=== PATIENT | female | born 1940 | race Caucasian/White ===

== ENCOUNTER → 2020-04-20 10:00 | Outpatient (BNVA) | payer MEDICARE, OTHER, SELFPAY | PROVIDERS: Family Provider Internal Medicine; PCP Internal Medicine; Visit Provider Internal Medicine | DX: E11.9 Type 2 diabetes mellitus without complications (principal); R63.4 Abnormal weight loss; R07.9 Chest pain, unspecified; K86.3 Pseudocyst of pancreas | CPT/HCPCS: 80053; 83690; 85025 ==

== ENCOUNTER 2020-04-28 06:59 | Outpatient (CLI) | payer MEDICARE, OTHER, SELFPAY ==
--- NOTE | 2020-04-28 07:22 | NMCV_ITS ---
NM willie perf SPECT r/s* [id number] Roya Esposito Age: 79 Gender: F : 1940 Exam Date: 04/28/2020 08:00 Ordering Phys: Duran Juárez MD Technologist: LORY Solano Exam Location: [facility] Indications: CHEST PAIN IN ADULT STRESS TEST [facility] IMAGE PROTOCOL Rest/Stress 1 Lexiscan Day Radiopharmaceutical Dose (mCi) Administration Site Administered by Rest: Tc-99m 11.0 IV LORY Solano Sestamibi Stress:Tc-99m 32.9 IV LORY Pineda Sestamibi Rest: 28-Apr-2020 60 Discovery 630 Stress: 28-Apr-2020 30 Discovery 630 0.4mg Lexiscan. Images obtained in supine and prone position. SPECT RESULTS Technical Quality: Excellent Raw Data Analysis: Normal Image Corrections: No attenuation or motion correction applied Summed Stress Score: 0 Summed Rest Score: 6 Summed Difference Score: 0 PERFUSION FINDINGS Fairly uniform myocardial tracer uptake with no significant perfusion normalities FUNCTIONAL RESULTS (calculated via Gated SPECT) Stress Image LV EF (%): 91 Stress EDV (mL):35 TID: 0.67 Stress ESV (mL):3 FUNCTIONAL FINDINGS: Segmental wall motion analysis revealing no gross wall motion normalities #1. Unremarkable myocardial perfusion imaging. IMPRESSIONS 1. Unremarkable myocardial perfusion imaging 2. Normal LV ejection fraction of 91%. 3. LV wall motion analysis revealing no gross wall motion normalities. 4. Normal LV volume. No significant coronary ischemia, based on the above findings Dr Carmela Chen MD FACC (Electronically Signed) Final Date: 28 April 2020 14:20 S
[2020-04-28 07:25] VITALS: BMI 27.2
[2020-04-28 08:50] VITALS: BP 144/50; PULSE 88
[2020-04-28] MEDS: regadenoson 0.4 Mg/5 ml Syringe IVP (08:50)
--- NOTE | 2020-04-28 09:30 | ECG_ITS ---
[facility] Test Date: 2020-04-28 Pat Name: Roya Esposito Department: Room: Gender: Female Supervisor Uranium Processing: Viky Zuluaga : 1940 Requested By: Duran Juárez Order Number: [id number] Wade MD: Keyla Rojas M.D. Interpretive Statements NAME OF STUDY: LEXISCAN SESTAMIBI STRESS TEST INDICATION: Chest Pain PROCEDURE: At the baseline, the blood pressure was 119/49 mmHg, oxygen saturation 97% with a heart rate of 52 bpm. The electrocardiogram showed sinus bradycardia, normal axis with possible old anteroseptal infarct. The Lexiscan was infused over a period of 20 seconds. A total of 0.4 milligrams of Lexiscan was infused. The stress phase was continued for a total of 5 minutes. Heart rate at the end of the stress phase was 81 bpm, oxygen saturation 97% with a blood pressure of 139/48 mmHg. The EKG at the peak infusion revealed sinus rhythm with no significant ST-T wave changes. The study was terminated due to protocol completion. Sestamibi was injected 20 seconds after the Lexiscan infusion. Blood pressure at the end of the recovery phase was 148/56 mmHg, oxygen saturation 98% with a heart rate of 77 beats per minute. CONCLUSION: 1. No significant EKG changes with the LexiScan infusion. 2. No LexiScan induced chest pain or cardiac arrhythmia. 3. Normal blood pressure and heart rate response. 4. Sestamibi/sestamibi perfusion scan pending; see separate report. Electronically Signed On 04-29-2020 14:53:21 CDT by Keyla Rojas M.D. [email or web address]
== END 2020-04-28 07:00 | disposition home or self-care (01) ==
LOC: CDL 06:59
PROVIDERS: PCP Internal Medicine; Visit Provider Internal Medicine
DX: R07.9 Chest pain, unspecified (principal)
CPT/HCPCS: 78452; 93017; A9500; J2785

== ENCOUNTER 2020-05-02 13:08 | Outpatient (CLI) | payer MEDICARE, OTHER, SELFPAY ==
[2020-05-02] MEDS: iohexol 300 mg/mL 50 mL Btl PO (13:39)
--- NOTE | 2020-05-02 14:30 | CT_ITS ---
WS: [id number] CT ABDOMEN PELVIS TECHNIQUE: Contrast-enhanced CT of the abdomen and pelvis with coronal and sagittal reformatted image s. CLINICAL INFORMATION: history of pancreatitis COMPARISON: CT February 28, 2011, 3 , . DLP: 1110.[address] scans at [facility] use at least one of these dose optimization techniques: automat ed exposure control; mA and/or kV adjustment per patient size (includes targeted exams where dose is matched to clinical indication); or iterative reconstruction. FINDINGS: Mild diffuse fatty infiltration of the liver. Normal portal vein and splenic vein. Cholecystectomy cl ips. Splenic granulomas. Normal GE junction. Lung bases are well aerated. Calcified granuloma left lo wer lobe. Normal portal vein and splenic vein. Adrenal glands are normal. No hydronephrosis in either kidney. Prior cholecystectomy. Pancreatic resection with a small amount of residual pancreatic tissue at the pancreatic head/uncinate. Normal caliber abdominal aorta. Aortic calcification. Normal appendix. No adenopathy in the abdomen o r pelvis. CT/CT abdomen pelvis w con* [id number] IMPRESSION: 1. Cholecystectomy. 2. Small amount of residual pancreatic tissue involving the pancreatic head an d uncinate process. 3. No pancreatic mass or pseudocyst. 4. Mild diffuse fatty infiltration of the liver. 5. Normal caliber abdominal aorta. 6. No adenopathy in the abdomen or pelvis. 7. No other significant changes.
[2020-05-02] MEDS: iohexol 300 mg/mL 100 mL Btl IV (14:44)
== END 2020-05-02 13:09 | disposition home or self-care (01) ==
PROVIDERS: Family Provider Internal Medicine; PCP Internal Medicine; Visit Provider Internal Medicine
DX: K85.90 Acute pancreatitis without necrosis or infection, unspecified (principal); R63.4 Abnormal weight loss; K76.0 Fatty (change of) liver, not elsewhere classified
CPT/HCPCS: 74177; Q9967

== ENCOUNTER 2020-08-09 10:26 | Outpatient (CLI) | payer MEDICARE, OTHER, SELFPAY ==
--- NOTE | 2020-08-09 10:34 | XR_ITS ---
WS: [id number] XR hip BI 3-4V wo/w pel [id number] REASON FOR EXAM: M70.61 - Trochanteric bursitis, right hip FINDINGS: There is symmetric osteoarthropathy of both hip joints characterized by mild to moderate narrowing of the joint space with subchondral sclerosis in the subarticular acetabulum and marginal spurring of t he acetabulum. No loose bodies. No soft tissue abnormality. Obturator ring is intact bilaterally. XR/XR hip BI 3-4V wo/w pel [id number] IMPRESSION: Symmetric bilateral osteoarthropathy of the hips as above.
--- NOTE | 2020-08-09 10:34 | XR_ITS ---
WS: [id number] Bilateral standing knees, AP and lateral, 08/09/2020 Clinical Data: M70.61 - Trochanteric bursitis, right hip Comparison: Bilateral AP knees. Findings: There is narrowing of the lateral joint compartments and the medial joint compartments of both knees. There is spurring of the posterior right patella and also an anterior superior spur. There are no fra ctures or dislocations. Soft tissues are normal. There is spurring of the posterior left patella with a anterior superior spur. There are no fractures or dislocations. 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
== END 2020-08-09 10:27 | disposition home or self-care (01) ==
LOC: RAD 10:31
PROVIDERS: PCP Internal Medicine; Visit Provider Internal Medicine
DX: M70.61 Trochanteric bursitis, right hip (principal); M17.0 Bilateral primary osteoarthritis of knee
CPT/HCPCS: 73522; 73565

== ENCOUNTER → 2021-02-07 10:00 | Outpatient (BNVA) | payer MEDICARE, OTHER, SELFPAY | PROVIDERS: PCP Internal Medicine; Visit Provider Internal Medicine | DX: E11.9 Type 2 diabetes mellitus without complications (principal); M19.90 Unspecified osteoarthritis, unspecified site | CPT/HCPCS: 80053; 83036; 84443; 85025 ==

== ENCOUNTER → 2021-09-25 00:01 | Outpatient (BNVA) | payer MEDICARE, OTHER, SELFPAY | PROVIDERS: PCP Internal Medicine; Visit Provider Nurse Practitioner Family | DX: J06.9 Acute upper respiratory infection, unspecified (principal); Z20.822 Contact with and (suspected) exposure to COVID-19 | CPT/HCPCS: 87635 ==

== ENCOUNTER 2021-09-28 08:17 | Outpatient (CLI) | payer MEDICARE, OTHER, SELFPAY ==
[2021-09-28 08:22] VITALS: BP 142/66; PULSE 78; RESP 20; TEMP 36.6; O2SAT 97
[2021-09-28 09:20] VITALS: BMI 27.4
[2021-09-28 09:45] VITALS: BP 156/71; PULSE 62; RESP 18; TEMP 36.6; O2SAT 99
[2021-09-28 10:45] VITALS: BP 159/68; PULSE 67; RESP 18; TEMP 36.6; O2SAT 99
[2021-09-28 10:46] VITALS: BP 159/68; PULSE 67; RESP 18; TEMP 36.6; O2SAT 99
== END 2021-09-28 10:46 | disposition home or self-care (01) ==
PROVIDERS: PCP Internal Medicine; Visit Provider Nurse Practitioner Family
DX: U07.1 COVID-19 (principal)
CPT/HCPCS: 96365

== ENCOUNTER → 2022-08-30 12:58 | Outpatient (BNVA) | payer MEDICARE, OTHER, SELFPAY | PROVIDERS: PCP Internal Medicine; Visit Provider Nurse Practitioner Family | DX: I96 Gangrene, not elsewhere classified (principal); L98.492 Non-pressure chronic ulcer of skin of other sites with fat layer exposed | CPT/HCPCS: 11042; 99213 ==

== ENCOUNTER → 2022-09-06 13:55 | Outpatient (BNVA) | payer MEDICARE, OTHER, SELFPAY | PROVIDERS: PCP Internal Medicine; Visit Provider Nurse Practitioner Family | DX: S61.512D Laceration without foreign body of left wrist, subsequent encounter (principal); X58.XXXD Exposure to other specified factors, subsequent encounter | CPT/HCPCS: 99212; A6212 ==

== ENCOUNTER 2023-06-03 15:33 | Emergency (ER) | payer MEDICARE, OTHER, SELFPAY ==
[2023-06-03 15:37] VITALS: BP 178/83; PULSE 80; RESP 16; TEMP 36.6; O2SAT 99; BMI 26.6
[2023-06-03 16:35] LABS: SARS Covid-2 Antigen negative (Negative)
[2023-06-03] MEDS: tetracaine 0.5% Op Soln 4 mL Btl 1 DROP EYE-LEFT (16:38)
--- NOTE | 2023-06-03 16:40 | CTR_ITS ---
PROCEDURE INFORMATION: Exam: CTA Head With Contrast, Arteriography Exam date and time: 06/03/2023 5:50 PM Age: 82 years old Clinical indication: Visual disturbance; Other visual defect; Additional info: L medial visual field defect in L eye, potential CVA TECHNIQUE: Imaging protocol: Computed tomographic angiography of the head with contrast. Exam focused on the arteries. 3D rendering (Not supervised by radiologist): MIP and/or 3D reconstructed images were created by the technologist. Radiation optimization: All CT scans at this facility use at least one of these dose optimization techniques: automated exposure control; mA and/or kV adjustment per patient size (includes targeted exams where dose is matched to clinical indication); or iterative reconstruction. Contrast material: OMNI 350; Contrast volume: 100 ml; Contrast route: INTRAVENOUS (IV); REPORTING DATA: Count of CT and Cardiac NM exams in prior 12 months: This patient has received 0 known CTs and 0 known cardiac nuclear medicine studies in the 12 months prior to the current study. COMPARISON: CT head wo con* [id number] 06/03/2023 4:55 PM RADIATION DOSE METRICS: Total DLP (mGy-cm): 399.74 FINDINGS: ANTERIOR CIRCULATION: Right internal carotid artery: There is some atherosclerotic calcification of the right cavernous carotid artery without stenosis. Right middle cerebral artery: No occlusion or significant stenosis. No aneurysm. Right anterior cerebral artery: No occlusion or significant stenosis. No aneurysm. Left internal carotid artery: There is some atherosclerotic calcification of the left cavernous carotid artery without stenosis. Left middle cerebral artery: No occlusion or significant stenosis. No aneurysm. Left anterior cerebral artery: No occlusion or significant stenosis. No aneurysm. POSTERIOR CIRCULATION: Right vertebral artery: No occlusion or significant stenosis. No aneurysm. Left vertebral artery: No occlusion or significant stenosis. No aneurysm. Basilar artery: There is short segment of focal narrowing of the mid basilar artery with stenosis in the 20-40% range. Right posterior cerebral artery: No occlusion or significant stenosis. No aneurysm. Left posterior cerebral artery: No occlusion or significant stenosis. No aneurysm. Brain: No definite mass, mass effect, or midline shift. Cerebral ventricles: No ventriculomegaly. Bones/joints: Unremarkable. No acute fracture. Soft tissues: Unremarkable. PROCEDURE INFORMATION: Exam: CTA Neck With Contrast Exam date and time: 06/03/2023 5:50 PM Age: 82 years old Clinical indication: Visual disturbance; Other visual defect; Additional info: L medial visual field defect in L eye, potential CVA TECHNIQUE: Imaging protocol: Computed tomographic angiography of the neck with contrast. 3D rendering (Not supervised by radiologist): MIP and/or 3D reconstructed images were created by the technologist. Radiation optimization: All CT scans at this facility use at least one of these dose optimization techniques: automated exposure control; mA and/or kV adjustment per patient size (includes targeted exams where dose is matched to clinical indication); or iterative reconstruction. Contrast material: OMNI 350; Contrast volume: 100 ml; Contrast route: INTRAVENOUS (IV); REPORTING DATA: Count of CT and Cardiac NM exams in prior 12 months: This patient has received 0 known CTs and 0 known cardiac nuclear medicine studies in the 12 months prior to the current study. COMPARISON: CT head wo con* [id number] 06/03/2023 4:55 PM RADIATION DOSE METRICS: Total DLP (mGy-cm): 399.74 FINDINGS: Right common carotid artery: No stenosis. No dissection or occlusion. Right internal carotid artery: No stenosis of the extracranial segment. No dissection or occlusion. Right external carotid artery: No occlusion or stenosis of the origin. Left common carotid artery: No stenosis. No dissection or occlusion. Left internal carotid artery: No stenosis of the extracranial segment. No dissection or occlusion. Left external carotid artery: No occlusion or stenosis of the origin. Right vertebral artery: No stenosis. No dissection or occlusion. Left vertebral artery: No stenosis. No dissection or occlusion. Thyroid: There are 2 hypodense nodules in the right lobe of the thyroid, 1 measuring 8 x 10 mm in the other 11 x 12 mm. No follow-up is recommended. Soft tissues: Normal. No significant soft tissue swelling. Bones/joints: No acute fracture. CT/CT angio headneck* [id number] IMPRESSION: Mild focal stenosis mid basilar artery. There is no intracranial large vessel occlusion or aneurysm identified. IMPRESSION: No evidence of significant stenosis in the carotid or vertebral arteries on either side of the neck. COMMENTS: Consistent with the [employer]'s Incidental Findings Committee white paper (J Am Mayela Radiol 2015): In patients aged 35 years and older with an incidental thyroid nodule equal to or greater than 1.[address], MRI or extrathyroidal US, further evaluation with dedicated thyroid US is recommended for patients with normal life expectancy and without comorbidities. For smaller nodules without suspicious features, no further evaluation or follow up is recommended. REFERENCES: NASCET CRITERIA. The degree of stenosis in the cervical segment of the internal carotid artery is based on NASCET criteria. Normal is no stenosis. Mild is less than 50% stenosis. Moderate is 50-69% stenosis. Severe is 70% to 99% stenosis. Total occlusion is no detectable patent lumen.
--- NOTE | 2023-06-03 16:42 | W.ED.EYEPROB ---
HPI - Eye Problem General: Chief complaint: Eye Problems Stated complaint: left eye problems, headaches Time Seen by Provider: 06/03/23 15:48 Source: patient and family Mode of arrival: ambulatory Limitations: no limitations History of Present Illness: See nursing assessment. Patient reports 1 week ago she started having visual field problems in the left eye. She states the left medial visual field in the left eye became black with the lateral aspect of the visual field in the left eye became blurred. She states she is noticed some floaters in the vision in the left eye last couple days. She states she did not want to seek medical attention then because her was sick with gallbladder issues and required surgery. She is here today because her family advised her to come the hospital for evaluation. She states when she closes her right eye if she becomes unsteady and off balance but denies any vertigo type sensation. She states when she has her right eye open she is not off balance. She states she had mild headache over her right methodist and forehead at the onset of visual field problems 1 week ago. She denies any headache now. She states the vision is unchanged from 1 week ago. She denies any deficits from her neck down. She denies any facial droop. She denies any other neurological changes. She does have a history of insulin-dependent diabetes mellitus and takes Lantus 20 units daily. She also has a history of intermittent bladder incontinence and takes a bladder medication for that. She is also on lisinopril and meloxicam. She denies being on any blood thinners. She denies any allergies to medications. She states the vision in her right eye is normal. Associated symptoms: Reports headache(s) (Right frontal and temporal headache has resolved from last week.); Denies fever(s), nausea, neck pain or vomiting Review of Systems Const: Denies: fever(s) or chills Eyes: Reports: change in vision, blurry vision, blind spots and floaters; Denies: photophobia, eye discomfort, eye discharge, eye redness, yellow eyes, dry eyes, increased production of tears or seeing flashes ENMT: Denies: throat pain Card: Denies: chest pain or palpitations Resp: Denies: dyspnea or wheezing GI: Denies: abdominal pain, nausea or vomiting : Denies: flank pain Musc: Denies: neck pain or back pain Skin/Breast: Denies: rash or pruritus Neuro: Reports: headache(s) (Right frontal and temporal headache has resolved from last week.); Denies: numbness in extremities, behavioral changes or Slurred speech present Psych: Denies: anxiety Willie/Lymph: Denies: enlarged lymph nodes PFSH ED PFSH: Medical History Diabetes Essential (primary) hypertension Family History Father Diabetes Other Heart disease Social History Smoking and tobacco status: never smoked Alcohol intake: never Marital status: service: No Current gender identity: Female Physical Exam Const: COMMON NORMALS: no acute distress, patient oriented x3, no limitations and well nourished GENERAL APPEARANCE: cooperative HENMT: COMMON NORMALS: normocephalic and atraumatic HEAD & SCALP: normocephalic and atraumatic FACE & SINUS: normal facial exam Eye: COMMON NORMALS: EOMs intact bilaterally OTHER: No papilledema seen on the left. Pupils equal round reactive light and accommodation. Patient states she still has visual field defects as described above. Neck/C-Spine: COMMON NORMALS: full ROM, no lymphadenopathy, supple and no meningeal signs GENERAL: Yes normal visual inspection OTHER: No carotid bruits. Lymph: LYMPHATIC: no lymphadenopathy noted Chest: COMMONS NORMALS: normal inspection of the chest and normal palpation of entire chest wall CHEST: No Ecchymosis present and No rash Resp: COMMON NORMALS: normal respiratory effort, No retractions and clear to auscultation bilaterally EFFORT & INSPECTION: No respiratory distress AUSCULTATION: clear to auscultation bilaterally Cardio: COMMON NORMALS: regular rate, regular rhythm and Peripheral pulses 2+ throughout JUGULAR VENOUS DISTENTION: no JVD RATE: regular rate RHYTHM: regular rhythm PERIPHERAL PULSES: Peripheral pulses 2+ throughout GI: COMMON NORMALS: Normal to inspection, nondistended, normoactive bowel sounds present, Soft to palpation, non-tender, No hepatosplenomegaly present and no masses PALPATION: Yes Soft to palpation and Yes No hepatosplenomegaly present : COMMON NORMALS: Yes no CVA tenderness BLADDER/KIDNEY EXAM: Yes no CVA tenderness Back/Pelvis: COMMON NORMALS: no CVA tenderness Extremity: COMMON NORMALS: normal to inspection, full ROM and capillary refill normal Neuro: COMMON NORMALS: patient oriented x3, CN's II-XII intact bilaterally, no focal motor deficits and no sensory deficits noted MENINGEAL SIGNS: Yes no meningeal signs Psych: COMMON NORMALS: mental status grossly normal and Normal thought process present THOUGHT PROCESS: Normal thought process present Skin: COMMON NORMALS: no rashes or lesions noted and no wounds GENERAL SKIN EXAM: no rashes or lesions noted Course Vital Signs: Vital signs: Vital Signs Temperature 97.9 F 06/03/23 15:37 Pulse Rate 80 06/03/23 15:37 Respiratory Rate 16 06/03/23 17:00 Blood Pressure 178/83 06/03/23 15:37 Pulse Oximetry 97 06/03/23 17:00 Oxygen Delivery Me thod Room Air 06/03/23 15:37 MDM - Eye Problem Medical Decision Making 82-year-old female with visual field deficits and left eye. Left medial hemianopsia. Milo-Pen was used to check pressure and left eye. Total pressures were 16 mmHg, 13 mmHg and 13 mmHg on 3 separate readings. Therefore, intraocular pressure is normal. Differential diagnoses include retinal occlusion, retinal detachment, CVA. CT angiogram of head and neck were essentially normal except for mild narrowing of basilar artery. Patient likely has problem with the retina on the left. Therefore we will have patient follow-up with driver wheelchair this week. Lab Data 06/03/23 14:50 06/03/23 14:50 Radiology Impressions Head/Neck CTA 06/03/23 16:40 IMPRESSION: Mild focal stenosis mid basilar artery. There is no intracranial large vessel occlusion or aneurysm identified. IMPRESSION: No evidence of significant stenosis in the carotid or vertebral arteries on either side of the neck. COMMENTS: Consistent with the [employer]'s Incidental Findings Committee white paper (J Am Mayela Radiol 2015): In patients aged 35 years and older with an incidental thyroid nodule equal to or greater than 1.[address], MRI or extrathyroidal US, further evaluation with dedicated thyroid US is recommended for patients with normal life expectancy and without comorbidities. For smaller nodules without suspicious features, no further evaluation or follow up is recommended. REFERENCES: NASCET CRITERIA. The degree of stenosis in the cervical segment of the internal carotid artery is based on NASCET criteria. Normal is no stenosis. Mild is less than 50% stenosis. Moderate is 50-69% stenosis. Severe is 70% to 99% stenosis. Total occlusion is no detectable patent lumen. Head CT 06/03/23 16:41 IMPRESSION: No acute intracranial finding. Laboratory Results WBC 4.91 10^3/uL (3.29-11.43) 06/03/23 14:50 RBC 4.53 10^6/uL (3.85-5.65) 06/03/23 14:50 Hgb 13.50 g/dL (11.27-16.99) 06/03/23 14:50 Hct 40.3 % (36-47) 06/03/23 14:50 MCV 89.0 fl (85-98) 06/03/23 14:50 MCH 29.8 pg (27-33) 06/03/23 14:50 MCHC 33.5 g/dL (30-55) 06/03/23 14:50 RDW 12.3 % (12.1-15.1) 06/03/23 14:50 Plt Count 221 10^3/cmm (157-399) 06/03/23 14:50 MPV 10.6 fL (7.4-10.4) H 06/03/23 14:50 Neut % (Auto) 60.3 % 06/03/23 14:50 Lymph % (Auto) 27.5 % 06/03/23 14:50 Laurens % (Auto) 9.6 % 06/03/23 14:50 Eos % (Auto) 2.0 % 06/03/23 14:50 Baso % (Auto) 0.2 % 06/03/23 14:50 Neut # (Auto) 2.96 10^3/uL (1.8-7.7) 06/03/23 14:50 Lymph # (Auto) 1.4 10^3/uL (0.8-4.8) 06/03/23 14:50 [place] # (Auto) 0.5 10^3/uL (0.2-0.9) 06/03/23 14:50 Eos # (Auto) 0.1 10^3/uL (0.0-0.8) 06/03/23 14:50 Baso # (Auto) 0.0 10^3/uL (0.0-0.1) 06/03/23 14:50 Nucleated RBC % (auto) 0 % 06/03/23 14:50 Nucleated RBCs # 0.0 /100WBC 06/03/23 14:50 Sodium 137 mmol/L (136-145) 06/03/23 14:50 Potassium 4.8 mmol/L (3.5-5.1) 06/03/23 14:50 Chloride 100 mmol/L (98-107) 06/03/23 14:50 Carbon Dioxide 28 mmol/L (22-29) 06/03/23 14:50 Anion Gap 13.8 (5-19) 06/03/23 14:50 BUN 19 mg/dL (8-23) 06/03/23 14:50 Creatinine 1.2 mg/dL (0.5-0.9) H 06/03/23 14:50 GFR Calculation Not Reportable 06/03/23 14:50 Glucose 317 mg/dL (65-115) H 06/03/23 14:50 Calculated Osmolality 298 mOsm/kg (285-295) H 06/03/23 14:50 Calcium 8.7 mg/dL (8.5-10.5) 06/03/23 14:50 SARS-CoV-2 Ag (Rapid) negative (Negative) 06/03/23 16:[address] Head: Radiologist's impression: [address] [id number] Scan ReportSigned Patient: Roya Esposito #: [id number]: [id number]#:[id number]/Sex: 82 / FADM Date: 06/03/23Loc: ERRoom/Bed:Attending Dr: Ordering Provider/Ordering MD: Julio Greenberg MD Date of Service: 06/03/23 Procedure(s): CT head wo con* [id number] Accession Number(s): [id number] Report Number: [id number] PROCEDURE INFORMATION: Exam: CT Head Without Contrast Exam date and time: 06/03/2023 4:55 PM Age: 82 years old Clinical indication: Visual disturbance; Additional info: L medial visual field defect in L eye TECHNIQUE: Imaging protocol: Computed tomography of the head without contrast. Radiation optimization: All CT scans at this facility use at least one of these dose optimization techniques: automated exposure control; mA and/or kV adjustment per patient size (includes targeted exams where dose is matched to clinical indication); or iterative reconstruction. REPORTING DATA: Count of CT and Cardiac NM exams in prior 12 months: This patient has received 0 known CTs and 0 known cardiac nuclear medicine studies in the 12 months prior to the current study. COMPARISON: No relevant prior studies available. RADIATION DOSE METRICS: Total DLP (mGy-cm): 952.53 FINDINGS: Brain: There is mild cortical atrophy. Low-density changes in the white matter are consistent with nonspecific small vessel chronic ischemic change. There is no intracranial mass, hemorrhage or edema. Cerebral ventricles: No ventriculomegaly. Paranasal sinuses: Visualized sinuses are unremarkable. No fluid levels. Mastoid air cells: Visualized mastoid air cells are well aerated. Bones/joints: No calvarial fracture is demonstrated. There is an area of thinning of the calvarium in the right posterior parietal region which could represent old healed craniotomy. Please correlate with the patient's surgical history. Soft tissues: Unremarkable. CT/CT head wo con* [id number] IMPRESSION: No acute intracranial finding. Dictated By:Yazmin Rodriguez By:Yazmin Rodriguez Date/Time:06/03/23 1721 Other Data [address] [id number] Scan ReportSigned Patient: Roya Esposito #: [id number]: 1940cct#:[id number]/Sex: 82 / FADM Date: 06/03/23Loc: ERRoom/Bed:Attending Dr: Ordering Provider/Ordering MD: Julio Greenberg MD Date of Service: 06/03/23 Procedure(s): CT angio headneck* [id number] Accession Number(s): [id number] Report Number: [id number] PROCEDURE INFORMATION: Exam: CTA Head With Contrast, Arteriography Exam date and time: 06/03/2023 5:50 PM Age: 82 years old Clinical indication: Visual disturbance; Other visual defect; Additional info: L medial visual field defect in L eye, potential CVA TECHNIQUE: Imaging protocol: Computed tomographic angiography of the head with contrast. Exam focused on the arteries. 3D rendering (Not supervised by radiologist): MIP and/or 3D reconstructed images were created by the technologist. Radiation optimization: All CT scans at this facility use at least one of these dose optimization techniques: automated exposure control; mA and/or kV adjustment per patient size (includes targeted exams where dose is matched to clinical indication); or iterative reconstruction. Contrast material: OMNI 350; Contrast volume: 100 ml; Contrast route: INTRAVENOUS (IV); REPORTING DATA: Count of CT and Cardiac NM exams in prior 12 months: This patient has received 0 known CTs and 0 known cardiac nuclear medicine studies in the 12 months prior to the current study. COMPARISON: CT head wo con* [id number] 06/03/2023 4:55 PM RADIATION DOSE METRICS: Total DLP (mGy-cm): 399.74 FINDINGS: ANTERIOR CIRCULATION: Right internal carotid artery: There is some atherosclerotic calcification of the right cavernous carotid artery without stenosis. Right middle cerebral artery: No occlusion or significant stenosis. No aneurysm. Right anterior cerebral artery: No occlusion or significant stenosis. No aneurysm. Left internal carotid artery: There is some atherosclerotic calcification of the left cavernous carotid artery without stenosis. Left middle cerebral artery: No occlusion or significant stenosis. No aneurysm. Left anterior cerebral artery: No occlusion or significant stenosis. No aneurysm. POSTERIOR CIRCULATION: Right vertebral artery: No occlusion or significant stenosis. No aneurysm. Left vertebral artery: No occlusion or significant stenosis. No aneurysm. Basilar artery: There is short segment of focal narrowing of the mid basilar artery with stenosis in the 20-40% range. Right posterior cerebral artery: No occlusion or significant stenosis. No aneurysm. Left posterior cerebral artery: No occlusion or significant stenosis. No aneurysm. Brain: No definite mass, mass effect, or midline shift. Cerebral ventricles: No ventriculomegaly. Bones/joints: Unremarkable. No acute fracture. Soft tissues: Unremarkable. PROCEDURE INFORMATION: Exam: CTA Neck With Contrast Exam date and time: 06/03/2023 5:50 PM Age: 82 years old Clinical indication: Visual disturbance; Other visual defect; Additional info: L medial visual field defect in L eye, potential CVA TECHNIQUE: Imaging protocol: Computed tomographic angiography of the neck with contrast. 3D rendering (Not supervised by radiologist): MIP and/or 3D reconstructed images were created by the technologist. Radiation optimization: All CT scans at this facility use at least one of these dose optimization techniques: automated exposure control; mA and/or kV adjustment per patient size (includes targeted exams where dose is matched to clinical indication); or iterative reconstruction. Contrast material: OMNI 350; Contrast volume: 100 ml; Contrast route: INTRAVENOUS (IV); REPORTING DATA: Count of CT and Cardiac NM exams in prior 12 months: This patient has received 0 known CTs and 0 known cardiac nuclear medicine studies in the 12 months prior to the current study. COMPARISON: CT head wo con* [id number] 06/03/2023 4:55 PM RADIATION DOSE METRICS: Total DLP (mGy-cm): 399.74 FINDINGS: Right common carotid artery: No stenosis. No dissection or occlusion. Right internal carotid artery: No stenosis of the extracranial segment. No dissection or occlusion. Right external carotid artery: No occlusion or stenosis of the origin. Left common carotid artery: No stenosis. No dissection or occlusion. Left internal carotid artery: No stenosis of the extracranial segment. No dissection or occlusion. Left external carotid artery: No occlusion or stenosis of the origin. Right vertebral artery: No stenosis. No dissection or occlusion. Left vertebral artery: No stenosis. No dissection or occlusion. Thyroid: There are 2 hypodense nodules in the right lobe of the thyroid, 1 measuring 8 x 10 mm in the other 11 x 12 mm. No follow-up is recommended. Soft tissues: Normal. No significant soft tissue swelling. Bones/joints: No acute fracture. CT/CT angio headneck* [id number] IMPRESSION: Mild focal stenosis mid basilar artery. There is no intracranial large vessel occlusion or aneurysm identified. IMPRESSION: No evidence of significant stenosis in the carotid or vertebral arteries on either side of the neck. COMMENTS: Consistent with the [place] [employer]'s Incidental Findings Committee white paper (J Am Mayela Radiol 2015): In patients aged 35 years and older with an incidental thyroid nodule equal to or greater than 1.[address], MRI or extrathyroidal US, further evaluation with dedicated thyroid US is recommended for patients with normal life expectancy and without comorbidities. For smaller nodules without suspicious features, no further evaluation or follow up is recommended. REFERENCES: NASCET CRITERIA. The degree of stenosis in the cervical segment of the internal carotid artery is based on NASCET criteria. Normal is no stenosis. Mild is less than 50% stenosis. Moderate is 50-69% stenosis. Severe is 70% to 99% stenosis. Total occlusion is no detectable patent lumen. Dictated By:Yazmin Rodriguez By:Yazmin Rodriguez Date/Time:06/03/231827DD/ 49 Discharge Plan Discharge Patient Disposition: Home Clinical Impression: Vision changes, Insulin dependent diabetes mellitus, Hyperglycemia due to type 1 diabetes mellitus Condition: Stable Prescriptions: No Action acetaminophen [Arthritis Pain Relief (acetam)] 650 mg tablet extended release 650 mg PO Q12H ascorbate calcium (vitamin C) 500 mg tablet 500 mg PO DAILY Dialyvite Vitamin D3 Max 1,250 mcg (50,000 unit) tablet PO DAILY lisinopril 20 mg tablet 20 mg PO DAILY Qty: 90 3RF meloxicam 15 mg tablet 15 mg PO DAILY Qty: 90 3RF sulfamethoxazole-trimethoprim [Bactrim DS] 800-160 mg tablet 1 tab PO BID 10 Days Qty: 20 0RF pen needle, diabetic [TRUEplus Pen Needle] 31 gauge x 3/16 needle See Rx Instructions .ROUTE .COMPLEX Qty: 100 12RF Dose Instruction: USE DIRECTED ONCE DAILY Rx Instructions: USE DIRECTED ONCE DAILY Lantus Solostar U-100 Insulin 100 unit/mL (3 mL) insulin pen 40 unit SUBCUT DAILY Qty: 15 7RF miscellaneous medical supply Misc 1 ea miscellaneous QDAY Qty: 1 0RF Rx Instructions: polymem Ag dressing Discharge Orders: Discharge ED (Routine); Ordered 06/03/23 Ordered By: Julio Greenberg Referrals: Duran Juárez MD [Primary Care Provider] - Yoni Kirby [Referring] - 06/04/23 9:00 am (call office tomorrow morning for appointment time.) Discharge Diet: Diabetic Patient Instructions: Blurred Vision (ED), Vision Problems Activity Restrictions/Additional Instructions: Call driver wheelchair office in the morning to set up an appointment for sometime this week for check of possible retinal problem on the left. CT angiogram of your head showed minimal narrowing of the basilar artery. No evidence of stroke. Take baby aspirin 81 mg tablet daily by mouth until cleared by your doctor. Avoid any heavy lifting or pushing or bearing down that would cause more pressure in your eye. Follow your blood sugar closely. Coding Level of Care Code ED Drill Press Set Up Operator for Shelley Hall
[2023-06-03 17:00] VITALS: RESP 16; O2SAT 97
[2023-06-03 17:19] LABS: Basophils % 0.2 %; Eosinophils # 0.1 10^3/uL (0.0-0.8); Hematocrit 40.3 % (36-47); Lymphocytes # 1.4 10^3/uL (0.8-4.8); Lymphocytes % 27.5 %; Mean Corpuscular HGB Conc 33.5 g/dL (30-55); Mean Corpuscular Hemoglobin 29.8 pg (27-33); Mean Platelet Volume 10.6 fL (7.4-10.4); Monocytes # 0.5 10^3/uL (0.2-0.9); Monocytes % 9.6 %; Neutrophils # 2.96 10^3/uL (1.8-7.7); Neutrophils % 60.3 %; Nucleated Red Blood Cells % 0 %; Platelet Count 221 10^3/cmm (157-399); Red Blood Count 4.53 10^6/uL (3.85-5.65); Red Cell Distribution Width 12.3 % (12.1-15.1); White Blood Count 4.91 10^3/uL (3.29-11.43)
[2023-06-03 17:33] LABS: Anion Gap 13.8 (5-19); Blood Urea Nitrogen 19 mg/dL (8-23); Calcium 8.7 mg/dL (8.5-10.5); Carbon Dioxide 28 mmol/L (22-29); Chloride 100 mmol/L (98-107); Glucose 317 mg/dL (65-115); Osmolality Calculated 298 mOsm/kg (285-295); Potassium 4.8 mmol/L (3.5-5.1); Sodium 137 mmol/L (136-145)
[2023-06-03] MEDS: aspirin 325 mg Tablet PO (18:48)
[2023-06-03 18:55] VITALS: RESP 18
[2023-06-03] MEDS: iohexol 350 mg/mL 500 mL Btl (per mL) IV (19:00)
== END 2023-06-03 18:55 | disposition home or self-care (01) ==
PROVIDERS: Emergency Provider Family Medicine; PCP Internal Medicine
DX: E10.65 Type 1 diabetes mellitus with hyperglycemia (principal); Z79.4 Long term (current) use of insulin; Z20.822 Contact with and (suspected) exposure to COVID-19; I10 Essential (primary) hypertension
CPT/HCPCS: 70450; 70496; 70498; 80048; 85025; 87426; 99285; Q9967

== ENCOUNTER 2023-10-03 09:20 | Outpatient (CLI) | payer MEDICARE, OTHER, SELFPAY ==
--- NOTE | 2023-10-03 09:28 | MR_ITS ---
WS: [id number] MRI HEAD WITHOUT CONTRAST TECHNIQUE: Sagittal T1, T2 axial, T2 axial FLAIR, axial and coronal T1 images, axial susceptibility w eighted imaging, axial diffusion weighted images, and coronal T2 images were obtained. CLINICAL INFORMATION: ACUTE COGNITIVE DECLINE COMPARISON: CT head 06/03/2023 FINDINGS: No evidence of restricted diffusion to suggest acute ischemia. 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 Mild to moderate small vessel changes. Mild parench ymal volume loss. Normal posterior fossa. Normal vascular flow voids at the skull base. No extra-axia l fluid collections. No evidence of mass or mass effect. Paranasal sinuses are well aerated. Normal p osterior nasopharynx. Mastoid air cells are well aerated. Tiny punctate focus of hemosiderin in the superior LEFT temporal lobe. Normal optic chiasm and pituit roland infundibulum. Mild symmetric atrophy temporal lobes hippocampal formations. IMPRESSION: 1. No evidence of restricted diffusion to suggest acute ischemia. 2. 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 Moderate small vessel changes with mild parenchymal volume loss. 4. Tiny punctate focus of hemosiderin in the LEFT superior temporal lobe. 5. Mild symmetric atrophy temporal lobes and hippocampal formations. 6. No other suspicious findings.
== END 2023-10-03 09:21 | disposition home or self-care (01) ==
LOC: RAD 09:21
PROVIDERS: PCP Internal Medicine; Visit Provider Internal Medicine
DX: R41.89 Other symptoms and signs involving cognitive functions and awareness (principal); G93.89 Other specified disorders of brain; Z86.73 Personal history of transient ischemic attack (TIA), and cerebral infarction without residual deficits; I67.89 Other cerebrovascular disease
CPT/HCPCS: 70551

== ENCOUNTER 2024-01-27 00:03 | Emergency (ER) | payer MEDICARE, OTHER, SELFPAY ==
[2024-01-27 00:13] VITALS: BP 195/72; PULSE 62; RESP 17; TEMP 36.4; O2SAT 100; BMI 27.8
--- NOTE | 2024-01-27 00:24 | ECG_ITS ---
[facility] Test Date: 2024-01-27 Pat Name: Roya Esposito Department: Room: Gender: Female [employer]: : 1940 Requested By: Isaac Franklin Order Number: [id number] Mauro MD: Carmela Chen M.D. Measurements Intervals [place] Rate: 59 P: 42 PA: 199 QRS: -27 QRSD: 86 T: 36 QT: 424 QTc: 421 Interpretive Statements SINUS BRADYCARDIA MODERATE VOLTAGE CRITERIA FOR LVH, CONSIDER NORMAL VARIANT [MEETS CRITERIA IN ONE OF: R(aVL), S(V1), R(V5), R(V5/V6)+S(V1)] POSSIBLE SEPTAL MYOCARDIAL INFARCTION , OF INDETERMINATE AGE [30 ms Q WAVE IN V1/V2] No previous ECG available for comparison Electronically Signed On 01-27-2024 22:48:24 CDT by Carmela hCen M.D. [email or web address]
--- NOTE | 2024-01-27 00:44 | XRR_ITS ---
PROCEDURE INFORMATION: Exam: XR Chest Exam date and time: 01/27/2024 12:46 AM Age: 83 years old Clinical indication: Chest pressure; Patient HX: C/O chest pain with hypertension; Additional info: Cp TECHNIQUE: Imaging protocol: Radiologic exam of the chest. Views: 1 view. COMPARISON: CT angio headneck* [id number] 06/03/2023 5:50 PM FINDINGS: Lungs: Unremarkable. No consolidation. Pleural spaces: Unremarkable. No pleural effusion. No pneumothorax. Heart/Mediastinum: Unremarkable. No cardiomegaly. Bones/joints: Unremarkable. XR/XR chest 1V portable [id number] IMPRESSION: No acute findings.
--- NOTE | 2024-01-27 00:45 | ED_ITS ---
HPI - Chest Pain 2 General: Chief Complaint: Chest Pain Stated Complaint: High BP Time Seen by Provider: 01/27/24 00:44 History of Present Illness: 83-year-old female presenting with an ep isode of chest discomfort last evening. Lasted around 2 hours. This was around 5 PM evidently. It seemed to go away on its own, but the patient was significantly hypertensive at home which was concerning to her. She notes a headache, but she has had a constant headache for the past couple of months since a facial injury. She is not overly short of breath. Chest pain is resolved at this point. The patient's daughter notes that her lisinopril looked different in the bottle that it had in the past. Associated symptoms: Reports dyspnea; Deny abdominal pain, fever(s), palpitations or vomiting Review of Systems 2 Const: Denies: fever(s) Eyes: Denies: change in vision ENMT: Denies: throat pain Card: Reports: chest pain; Denies: palpitations Resp: Reports: dyspnea; Denies: productive cough or non-productive cough GI: Denies: abdominal pain or vomiting Neuro: Reports: headache(s) PFSH ED 2 PFSH: Medical History Diabetes Essential (primary) hypertension Family History Father Diabetes Other Heart disease Social History Smoking and tobacco/nicotine status: never used tobacco/nicotine Alcohol intake: never Marital status: service: No Current gender identity: Female Physical Exam 2 Const: COMMON NORMALS: no acute distress GENERAL APPEARANCE: cooperative; not ill appearing and not frail appearing HENMT: COMMON NORMALS: normocephalic, atraumatic and Normal external nose present HEAD & SCALP: normocephalic and atraumatic FACE & SINUS: normal facial exam and face symmetric NOSE: Normal external nose present Eye: COMMON NORMALS: Equal, round and reactive pupils present and EOMs intact bilaterally PUPIL: Yes Equal, round and reactive pupils present Neck/C-Spine: GENERAL: Yes trachea midline Chest: CHEST: Yes Symmetrical chest wall rise Resp: COMMON NORMALS: normal respiratory effort, No retractions, No use of accessory muscles and clear to auscultation bilaterally AUSCULTATION: clear to auscultation bilaterally Cardio: COMMON NORMALS: regular rate and regular rhythm RATE: regular rate RHYTHM: regular rhythm GI: COMMON NORMALS: Normal to inspection, nondistended, normoactive bowel sounds present Extremity: COMMON NORMALS: no pedal edema Neuro: [place] COMA SCALE: document GCS findings [place] coma scale eye opening: Spontaneous [place] coma scale verbal response: Orientated [place] coma scale motor response: Obey commands [place] coma scale total score: 15 S ENSORY EXAM: Yes extremities (intact) Psych: COMMON NORMALS: speech normal SPEECH: Yes normal speech Skin: COMMON NORMALS: no rashes or lesions noted GENERAL SKIN EXAM: no rashes or lesions noted Course 2 Vital Signs: Vital signs: Vital Signs Temperature 97.6 F 01/27/24 03:48 Pulse Rate 70 01/27/24 03:48 Respiratory Rate 16 01/27/24 03:48 Blood Pressure 145/70 01/27/24 03:48 Pulse Oximetry 98 01/27/24 03:48 Oxygen Delivery Me thod Room Air 01/27/24 02:17 MDM - Chest Pain Medical Decision Making Chest and had discomfort in the hypertensive female. Blood pressure has come down nicely after use of hydralazine and Vasotec. Headache is improved. EKG does not show acute ST wave changes. Chest x-ray is negative. Head CT is negative. Other laboratory is not remarkable including delta troponin of -0.28. She will be allowed discharge with improvement in her symptoms. Lab Data 01/27/24 00:45 01/27/24 00:45 Radiology Impressions Chest X-Ray 01/27/24 00:44 IMPRESSION: No acute findings. Head CT 01/27/24 02:01 IMPRESSION: No acute intracranial findings. Laboratory Results WBC 6.60 10^3/uL (3.29-11.43) 01/27/24 00:45 RBC 4.48 10^6/uL (3.85-5.65) 01/27/24 00:45 Hgb 13.30 g/dL (11.27-16.99) 01/27/24 00:45 Hct 40.5 % (36-47) 01/27/24 00:45 MCV 90.4 fl (85-98) 01/27/24 00:45 MCH 29.7 pg (27-33) 01/27/24 00:45 MCHC 32.8 g/dL (30-55) 01/27/24 00:45 RDW 12.5 % (12.1-15.1) 01/27/24 00:45 Plt Count 221 10^3/cmm (157-399) 01/27/24 00:45 MPV 10.7 fL (7.4-10.4) H 01/27/24 00:45 Neut % (Auto) 51.6 % 01/27/24 00:45 Lymph % (Auto) 34.4 % 01/27/24 00:45 Winston % (Auto) 8.0 % 01/27/24 00:45 Eos % (Auto) 5.2 % 01/27/24 00:45 Baso % (Auto) 0.6 % 01/27/24 00:45 Neut # (Auto) 3.41 10^3/uL (1.8-7.7) 01/27/24 00:45 Lymph # (Auto) 2.3 10^3/uL (0.8-4.8) 01/27/24 00:45 Winston # (Auto) 0.5 10^3/uL (0.2-0.9) 01/27/24 00:45 Eos # (Auto) 0.3 10^3/uL (0.0-0.8) 01/27/24 00:45 Baso # (Auto) 0.0 10^3/uL (0.0-0.1) 01/27/24 00:45 Nucleated RBC % (auto) 0 % 01/27/24 00:45 Nucleated RBCs # 0.0 /100WBC 01/27/24 00:45 PT 11.80 SECONDS (12.1-14.9) L 01/27/24 00:45 INR 0.84 (0.8-1.2) 01/27/24 00:45 APTT 27.1 SECONDS (23.9-36.7) 01/27/24 00:45 Sodium 134 mmol/L (136-145) L 01/27/24 00:45 Potassium 4.6 mmol/L (3.5-5.1) 01/27/24 00:45 Chloride 99 mmol/L (98-107) 01/27/24 00:45 Carbon Dioxide 27 mmol/L (22-29) 01/27/24 00:45 Anion Gap 12.6 (5-19) 01/27/24 00:45 BUN 19 mg/dL (8-23) 01/27/24 00:45 Creatinine 0.9 mg/dL (0.5-0.9) 01/27/24 00:45 GFR Calculation Not Reportable 01/27/24 00:45 Glucose 285 mg/dL (65-115) H 01/27/24 00:45 Calculated Osmolality 291 mOsm/kg (285-295) 01/27/24 00:45 Calcium 9.5 mg/dL (8.5-10.5) 01/27/24 00:45 Total Bilirubin 0.3 mg/dL (0.15-1.2) 01/27/24 00:45 AST 19 U/L (0-32) 01/27/24 00:45 ALT 19 U/L (0-33) 01/27/24 00:45 Alkaline Phosphatase 103 U/L (35-105) 01/27/24 00:45 Troponin T Baseline 12 ng/L (0-10) H 01/27/24 00:45 Troponin T 120 Minute 11.72 ng/L (0-10) H 01/27/24 02:40 Delta Troponin T -0.28 ABS# (0-10) L 01/27/24 02:40 NT-Pro-B Natriuret Pep 354 pg/mL (0-450) 01/27/24 00:45 Total Protein 7.2 g/dL (6.6-8.7) 01/27/24 00:45 Albumin 4.2 g/dL (3.5-5.2) 01/27/24 00:45 Globulin 3.0 g/dL (1.3-4.6) 01/27/24 00:45 All radiology interpretation(s) finalized by discharge Discharge Plan Discharge Patient Disposition: Home Clinical Impression: Chest pain, Essential (primary) hypertension Condition: Stable Prescriptions: New amlodipine 10 mg tablet 10 mg PO DAILY Qty: 30 0RF No Action acetaminophen [Arthritis Pain Relief (acetam)] 650 mg tablet extended release 650 mg PO Q12H ascorbate calcium (vitamin C) 500 mg tablet 500 mg PO DAILY Dialyvite Vitamin D3 Max 1,250 mcg (50,000 unit) tablet PO DAILY lisinopril 20 mg tablet 20 mg PO DAILY Qty: 90 3RF meloxicam 15 mg tablet 15 mg PO DAILY Qty: 90 3RF sulfamethoxazole-trimethoprim [Bactrim DS] 800-160 mg tablet 1 tab PO BID 10 Days Qty: 20 0RF pen needle, diabetic [TRUEplus Pen Needle] 31 gauge x 3/16 needle See Rx Instructions .ROUTE .COMPLEX Qty: 100 12RF Dose Instruction: USE DIRECTED ONCE DAILY Rx Instructions: USE DIRECTED ONCE DAILY Lantus Solostar U-100 Insulin 100 unit/mL (3 mL) insulin pen 40 unit SUBCUT DAILY Qty: 15 7RF miscellaneous medical supply Misc 1 ea miscellaneous QDAY Qty: 1 0RF Rx Instructions: polymem Ag dressing Discharge Orders: Discharge ED (Routine); Ordered 01/27/24 Ordered By: Isaac Mesa Referrals: Duran Juárez MD [Primary Care Provider] - 4-7 days Patient Instructions: Chest Pain (ED), Hypertension (ED), Opioid Safety, Pain Management Activity Restrictions/Additional Instructions: Check your blood pressure twice daily. If the top number remains above 150 or 160, you may take the medication you were prescribed. Log your numbers, and see your doctor later this week. Let them know you were seen here with chest discomfort. They may wish to perform other outpatient testing. Return for continued or worsening chest discomfort, inability to control blood pressure, mental status changes, any other concerning symptoms. Coding Level of Care Code ED Developer Advocate for [facility]
[2024-01-27 01:00] LABS: Basophils % 0.6 %; Eosinophils # 0.3 10^3/uL (0.0-0.8); Eosinophils % 5.2 %; Hematocrit 40.5 % (36-47); Lymphocytes # 2.3 10^3/uL (0.8-4.8); Lymphocytes % 34.4 %; Mean Corpuscular HGB Conc 32.8 g/dL (30-55); Mean Corpuscular Hemoglobin 29.7 pg (27-33); Mean Corpuscular Volume 90.4 fl (85-98); Mean Platelet Volume 10.7 fL (7.4-10.4); Monocytes # 0.5 10^3/uL (0.2-0.9); Neutrophils # 3.41 10^3/uL (1.8-7.7); Neutrophils % 51.6 %; Nucleated Red Blood Cells % 0 %; Platelet Count 221 10^3/cmm (157-399); Red Blood Count 4.48 10^6/uL (3.85-5.65); Red Cell Distribution Width 12.5 % (12.1-15.1)
[2024-01-27] MEDS: hyDRALAzine 20 mg/mL INJ 1 mL IVP (01:04)
[2024-01-27] MEDS: enalaprilat 2.5 mg/2 mL SDV 1.25 MG IVP (01:04)
[2024-01-27 01:11] LABS: INR 0.84 (0.8-1.2)
[2024-01-27 01:12] LABS: Partial Thromboplastin Time 27.1 SECONDS (23.9-36.7)
[2024-01-27 01:32] LABS: Alanine Aminotransferase 19 U/L (0-33); Albumin Level 4.2 g/dL (3.5-5.2); Alkaline Phosphatase 103 U/L (35-105); Anion Gap 12.6 (5-19); Aspartate Amino Transferase 19 U/L (0-32); Blood Urea Nitrogen 19 mg/dL (8-23); Calcium 9.5 mg/dL (8.5-10.5); Carbon Dioxide 27 mmol/L (22-29); Chloride 99 mmol/L (98-107); Creatinine Clr Calc Pharmacy 42.8374; Glucose 285 mg/dL (65-115); NT Pro B Type Natriuretic Pept 354 pg/mL (0-450); Osmolality Calculated 291 mOsm/kg (285-295); Potassium 4.6 mmol/L (3.5-5.1); Sodium 134 mmol/L (136-145); Total Bilirubin 0.3 mg/dL (0.15-1.2); Total Protein 7.2 g/dL (6.6-8.7)
[2024-01-27 01:35] VITALS: BP 150/72; PULSE 79; RESP 16; O2SAT 92
[2024-01-27 01:44] LABS: Troponin(5th) Baseline 12 ng/L (0-10)
--- NOTE | 2024-01-27 02:01 | CTR_ITS ---
PROCEDURE INFORMATION: Exam: CT Head Without Contrast Exam date and time: 01/27/2024 2:23 AM Age: 83 years old Clinical indication: Pain and injury or trauma; Blunt trauma (contusions or hematomas); Headache; Patient HX: C/O BARRETT with hypertension. PT states she hit her head from a fall several days ago. ; Additional info: Headache, HTN, fall several days ago TECHNIQUE: Imaging protocol: Computed tomography of the head without contrast. Radiation optimization: All CT scans at this facility use at least one of these dose optimization techniques: automated exposure control; mA and/or kV adjustment per patient size (includes targeted exams where dose is matched to clinical indication); or iterative reconstruction. COMPARISON: MR head wo con* [id number] 10/03/2023 9:37 AM RADIATION DOSE METRICS: Total DLP (mGy-cm): 959.78 FINDINGS: Brain: Mild cerebral atrophy and ischemic leukoencephalopathy. Cerebral ventricles: No ventriculomegaly. Paranasal sinuses: Visualized sinuses are unremarkable. No fluid levels. Mastoid air cells: Visualized mastoid air cells are well aerated. Bones/joints: Unremarkable. No acute fracture. Soft tissues: Unremarkable. Other findings: Severe calcified intracranial atherosclerotic vessel disease. CT/CT head wo con* [id number] IMPRESSION: No acute intracranial findings.
[2024-01-27 02:17] VITALS: BP 152/64; PULSE 77; RESP 16; O2SAT 99
[2024-01-27 03:00] LABS: Troponin 5 2HR 11.72 ng/L (0-10)
[2024-01-27 03:01] LABS: Troponin 5 2HR Delta -0.28 ABS# (0-10)
[2024-01-27 03:23] VITALS: BP 145/70; PULSE 70; RESP 16; O2SAT 98
[2024-01-27 03:48] VITALS: BP 145/70; PULSE 70; RESP 16; TEMP 36.4; O2SAT 98
== END 2024-01-27 03:52 | disposition home or self-care (01) ==
PROVIDERS: Emergency Provider Emergency Medicine; PCP Internal Medicine
DX: R07.9 Chest pain, unspecified (principal); I10 Essential (primary) hypertension; Z79.4 Long term (current) use of insulin; E11.9 Type 2 diabetes mellitus without complications
CPT/HCPCS: 36415; 70450; 71045; 80053; 83880; 84484; 85025; 85610; 85730; 93005; 96374; 96375; 99285; J0360

== ENCOUNTER 2025-04-24 20:50 | Emergency (ER) | payer MEDICARE, OTHER, SELFPAY ==
--- OUTSIDE RECORDS SUMMARY | 2022-07-13 04:16 | XMS_ITS | Continuity of Care Document ---
Author Name [facility] Organization [facility] Care Team Providers Care Safety Equipment Testing Specialist Name Role Phone [facility] Unavailable Unavailable Immunizations Combined list of available immunizations from the Department of Defense and Veterans Affairs facilities. Immunization Series Date Given Administered By Site Reaction Lot Number CVX Code Drug Front Desk Administrator Status Comments Source INFLUENZA, INJECTABLE, QUADRIVALENT, PRESERVATIVE FREE 2021 150 complet ed [facility] COVID-19 (MODERNA), MRNA, LNP-S, PF, 100 MCG/0.5ML DOSE OR 50 MCG/0.25ML DOSE 3 2021 207 complet ed MOD; [id number]; 2 [facility] COVID-19 (MODERNA), MRNA, LNP-S, PF, 100 MCG/0.5 ML DOSE 2 2020 207 complet ed MOD; [id number]; 1 [facility] COVID-19 (MODERNA), MRNA, LNP-S, PF, 100 MCG/0.5 ML DOSE 1 2020 207 complet ed MOD; [id number]; 1 [facility]
--- OUTSIDE RECORDS SUMMARY | 2025-04-24 21:00 | XMS_ITS | Encounter Summary ---
Author Organization [facility] Address [address] [place] [address] Care Team Providers Care Four Slide Machine Operator Name Role Phone Unavailable Primary Care Provider Unavailabl e Encounter Details Date Type Department Care Team (Late st Contact Info) Description 04/14/2025 External Device Data ST[place] ABSTRACTION Provider, Abstract NO ADDRESS ON FILE Social History Tobacco Use Types Packs/Day Years Used Date Smoking Tobacco: Never Passive Smoke Exposure: Never Smokeless Tobacco: Never Alcohol Use Standard Drinks/Week Comments Never 0 (1 standard drink = 0.6 oz pur e alcohol) Comments No Sex and Gender Information Value Date Recorded Sex Assigned at Not on file Legal Sex Female 6:41 AM INTELLIGENCE OPERATIONS Gender Identity Not on file Sexual Orientation Not on file documented as of this encounter Plan of Treatment Upcoming Encounters Date Type Department Care Team (Late st Contact Info) Description 10/21/2025 8:50 AM INTELLIGENCE OPERATIONS Office Visit [facility] [place] [address] [phone] Williams Chau MD [address] [phone] 10/21/2025 10:15 AM INTELLIGENCE OPERATIONS Office Visit [facility] [phone] Rick Bowen OD [address] [phone] documented as of this encounter Visit Diagnoses Not on filedocumented in this encounter
--- OUTSIDE RECORDS SUMMARY | 2025-04-24 21:00 | XMS_ITS | Clinical Summary ---
Author Organization [facility] Address [address] [place] [address] Care Team Providers Care Product Accountant Name Role Phone Unavailable Primary Care Provider Unavailabl e Immunizations Immunization Administration Dates Next Due Hepatitis B Vaccine 06/27/2006,11/26/2005,2005 Social History Tobacco Use Types Packs/Day Years Used Date Smoking Tobacco: Never Assessed Comments Unknown Sex and Gender Information Value Date Recorded Sex Assigned at Not on file Legal Sex Female 7:06 AM MERCHANDISE FLOW TEAM LEADER Gender Identity Not on file Sexual Orientation Not on file Plan of Treatment Health Maintenance Due Date Last Done Comments DTAP/TDAP/TD VACCINES (1 - Tdap) 1961 PNEUMOCOCCAL VACCINE 50+ YEARS (1 of 1 - PCV) 06/13/19 92 ZOSTER VACCINE (1 of 2) 1992 OSTEOPOROSIS SCREENING 2007 RSV VACCINE (60+ or ) (1 - 1-dose 75+ series) 2017 INFLUENZA VACCINE (#1) 2025 Insurance MEDICARE PART A AND B [place] [id number]
--- OUTSIDE RECORDS SUMMARY | 2025-04-24 21:00 | XMS_ITS | Clinical Summary ---
Author Organization [facility] Address [address] Alexis: Epic Prelude ADT GABI DAY [address] Care Team Providers Care Business Trainer Name Role Phone Unavailable Primary Care Provider Unavailabl e Allergies No known active allergies Medications meloxicam (MOBIC) 15 mg tablet Take 15 mg by mouth daily. Active amLODIPine (NORVASC) 5 mg tablet 1 tablet Orally Once a day for 90 days Active insulin glargine (Lantus Solostar U-100 Insulin) 100 unit/mL pen syringe 40 units Subcutaneous once a day for 30 days 3 Active lisinopriL (PRINIVIL) 40 mg tablet TAKE ONE TABLET BY MOUTH ONCE DAILY for 90 days Active VITAMIN B COMPLEX ORAL Take by mouth. Ac tive cholecalciferol , vitamin D3, 5,000 unit Take 400 Units by mouth daily. Active ascorbic acid, vitamin C, (VITAMIN C) 1,000 mg Tablet Take 1,000 mg by mouth daily. Active multivitamin (DAILY-KRIS) tablet Take 1 Tablet by mouth daily. Active escitalopram oxalate (LEXAPRO) 5 mg tablet Take 1 Tablet by mouth daily. 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, 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/10/2023 06/06/2023 Combined forms of age-related cataract of right eye 06/06/2023 Resolved Problems Problem Noted Date Diagnosed Date Resolved Date Pancreatitis 06/06/2023 06/06/2023 Encounters Date Type Department Care Team Description 04/14/2025 External Device Data STL ABSTRACTION Provider, Abstract 04/13/2025 External Device Data STL ABSTRACTION Provider, Abstract 03/16/2025 External Device Data STL ABSTRACTION Provider, Abstract 02/18/2025 External Device Data STL ABSTRACTION Provider, Abstract from Last 3 Months Immunizations Immunization Administration Dates Next Due Hepatitis B Vaccine 06/27/2006,11/26/2005,2005 Family History Medical History Relation Name Comments Diabetes Father Heart Disease Father Heart Disease Mother Diabetes Sister Relation Name Status Comments Father Mother Sister Social History Tobacco Use Types Packs/Day Years Used Date Smoking Tobacco: Never Passive Smoke Exposure: Never Smokeless Tobacco: Never Tobacco Cessation:Counseling Given: No Alcohol Use Standard Drinks/Week Comments Never 0 (1 standard drink = 0.6 oz pur e alcohol) Comments No Sex and Gender Information Value Date Recorded Sex Assigned at Not on file Legal Sex Female 6:41 AM SNOW BLOWER Gender Identity Not on file Sexual Orientation Not on file Last Filed Vital Signs Vital Sign Reading Time Taken Comments Blood Pressure 166/65 08/19/2024 11:30 AM SNOW BLOWER Pulse 56 08/19/2024 11:30 AM SNOW BLOWER Temperature 36.3 C (97.3 F) 08/19/2024 11:30 AM SNOW BLOWER Respiratory Rate 17 11/29/2023 5:45 PM SNOW BLOWER Oxygen Saturation 100% 08/19/2024 11:30 AM SNOW BLOWER Inhaled Oxygen Concentration - - Weight 66 kg (145 lb 6.4 oz) 08/19/2024 9:37 AM SNOW BLOWER Height 165.1 cm (5' 5 ) 08/19/2024 9:37 AM SNOW BLOWER Body Mass Index 24.2 08/19/2024 9:37 AM SNOW BLOWER Plan of Treatment Upcoming Encounters Date Type Department Care Team (Late st Contact Info) Description 10/21/2025 8:50 AM SNOW BLOWER Office Visit [facility] [place] [address] [place] [address] Williams Chau MD [address] [place] [address] 10/21/2025 10:15 AM SNOW BLOWER Office Visit [facility] Optometry [address] [place] [address] BowenRick, OD [address] [place] [address] Health Maintenance Due Date Last Done Comments DIABETES ANNUAL FOOT EXAM 1960 DIABETES HBA1C Q 6 MONTHS 1960 DIABETES MICROALBUMIN ANNUAL SCREEN 1960 LDL CHOLESTEROL ANNUAL 1960 DTAP/TDAP/TD VACCINES (1 - Tdap) 1961 PNEUMOCOCCAL VACCINE 50+ YEA RS (1 of 2 - PCV) 1961 ZOSTER VACCINE (1 of 2) 1992 OSTEOPOROSIS SCREENING 2007 RSV VACCINE (60+ or ) (1 - 1-dose 75+ series) 2017 INFLUENZA VACCINE (#1) 2025 07/13/2022 DIABETES ANNUAL RETINAL EXAM 10/20/2025, 10/20/2024, 10/20/2024, Additional history exists Insurance [address] [place] [address] MEDICARE PART A AND B [place] [employer] [employer] [place] [id number]
--- OUTSIDE RECORDS SUMMARY | 2025-04-24 21:00 | XMS_ITS | Encounter Summary ---
Author Organization [facility] Address [address] [place] [address] Care Team Providers Care Lumber Stacker Operator Name Role Phone Unavailable Primary Care Provider Unavailabl e Encounter Details Date Type Department Care Team (Late st Contact Info) Description 07/05/[address] [facility] Emergency Department [address] [place] [address] Ed, Physician NO ADDRESS ON FILE Riot Donahue MD NO ADDRESS ON FILE Social History Tobacco Use Types Packs/Day Years Used Date Smoking Tobacco: Never Assessed Comments Unknown Sex and Gender Information Value Date Recorded Sex Assigned at Not on file Legal Sex Female 7:06 AM GRAY TENDER Gender Identity Not on file Sexual Orientation Not on file documented as of this encounter Plan of Treatment Not on file documented as of this encounter Procedures Procedure Name Priority Date/Time Associated Diagnosis Comments PT AND APTT Stat 07/05/2008 5:58 AM CDT CBC WITH DIFFERENTIAL Stat 07/05/2008 5:58 AM CDT LIPASE Stat 07/05/2008 5:58 AM CDT AMYLASE Stat 07/05/2008 5:58 AM CDT COMPREHENSIVE METABOLIC PANEL Stat 07/05/2008 5:58 AM CDT documented in this encounter Results * (ABNORMAL) CBC WITH DIFFERENTIAL (07/05/2008 5:58 AM CDT) NEUTROPHILS 62.5 42.2 - 75.2 % [facility] MCH 27.9 27.0 - 34.0 pg [facility] NEUTROPHIL ABSOLUTE 4.1 2.0 - 8.0 K/ul [facility] HEMATOCRIT 30.7(L) 36.0 - 46.0 % [facility] PLATELETS 224 140 - 440 K/ul [facility] EOSINOPHIL ABSOLUTE 0.1 0.0 - 0.7 K/ul [facility] EOSINOPHILS 1.7 0.0 - 7.0 % [facility] RBC 3.59(L) 4.20 - 5.40 Mil/ul [facility] MCHC 32.6 30.0 - 35.0 g/dL [facility] LYMPHOCYTE ABSOLUTE 1.9 1.2 - 4.0 K/ul [facility] LYMPHOCYTES 28.6 24.0 - 44.0 % [facility] MCV 85.5 84.0 - 103.0 Fl [facility] BASOPHILS 0.5 0.0 - 1.0 % [facility] MPV 11.2 8.9 - 12.8 Fl [facility] BASOPHILS ABSOLUTE 0.0 0.0 - 0.2 K/ul [facility] HEMOGLOBIN 10.0(L) 12.0 - 16.0 g/dL [facility] MONOCYTES 6.7 2.0 - 10.0 % [facility] RDW 15.9(H) 11.0 - 14.5 % [facility] MONOCYTE ABSOLUTE 0.4 0.1 - 0.6 K/ul [facility] WBC 6.5 4.8 - 10.8 K/ul [facility] Blood specimen (specimen) 07/05/2008 5:58 AM CDT 07/05/2008 6:09 AM CDT us Rito Donahue MD HEMATOLOGY ORDERABLES Fin al Result INTERFACE SYSTEM Refer to clinic/hospital department [facility] CLIA# [id number] [address] [place] [address] * PT AND APTT (07/05/2008 5:58 AM CDT) PTT 26.8 22.5 - 36.5 Secs [facility] Comment: Therapeutic Range: Hi-level PE/DVT heparin protocol 80.1 -95.0 sec Lo-level PE/DVT heparin protocol 67.1 - 80.0 sec Cardiac Heparin Protocol 67.1 - 85.0 sec Neuro Heparin Protocol 67.1 - 80.0 sec As of 12/18/2007 note change in APTT Normal Range. PROTIME 15.3 12.8 - 15.8 Secs [facility] Comment:As of 2007 not e change in normal range. INR 1.1 [facility] Comment: Expected Values for INR: DVT/PE Goal INR 2.5; range 2.0 - 3.0 Valve Replacement Tissue Goal INR 2.5; range 2.0 - 3.0 Mechanical Goal INR 3.0; range 2.5 - 3.5 POST-NY Goal INR 2.5; range 2.0 - 3.0 or Goal 3.0; range 2.5 - 3.5 Atrial Fibrillation Goal INR 2.5; range 2.0 - 3.0 Ischemic Stroke Goal INR 2.5; range 2.0 - 3.0 For additional information see Guidelines for Anticoagulation available from the pharmacy Moris Walsh. [phone] Blood specimen (specimen) 07/05/2008 5:58 AM CDT 07/05/2008 6:08 AM CDT Rito Donahue MD HEMATOLOGY ORDERABLES [facility] Organization Address City/State/ZIP Co de Phone Number INTERFACE SYSTEM Refer to clinic/hospital department [facility] CLIA# [id number] [address] [place] [id number] * LIPASE (07/05/2008 5:58 AM CDT) LIPASE 35 6 - 51 U/L [facility] Blood specimen (specimen) 07/05/2008 5:58 AM CDT 07/05/2008 6:09 AM CDT Rito Donahue MD CHEMISTRY ORDERABLES Deyanira l Result Performing Organization Address [facility] [[email or web address] de Phone Number INTERFACE SYSTEM Refer to clinic/hospital department [facility] CLIA# [id number] [address] [place] [address] * (ABNORMAL) AMYLASE (07/05/2008 5:58 AM CDT) AMYLASE 106(H) 20 - 104 U/L [facility] Blood specimen (specimen) 07/05/2008 5:58 AM CDT 07/05/2008 6:09 AM CDT Rito Donahue MD CHEMISTRY ORDERABLES Deyanira l Result Performing Organization Address [facility] [[email or web address]] de Phone Number INTERFACE SYSTEM Refer to clinic/hospital department [facility] CLIA# [id number] [facility] [place] [address] * (ABNORMAL) COMPREHENSIVE METABOLIC PANEL (07/05/2008 5:58 AM CDT) CALCIUM 8.8 8.4 - 10.5 mg/dL [facility] CREATININE 0.8 0.7 - 1.2 mg/dL [facility] ALT 124(H) 4 - 36 IU/L [facility] GLUCOSE 302(H) 70 - 110 mg/dL [facility] CHLORIDE 97 95 - 110 mEq/L [facility] OSMOLALITY, CALCULATED 291 275 - 295 mOsm/Kg [facility] ALKALINE PHOSPHATASE 1,162(H) 25 - 100 U/L [facility] GLOBULIN (CALC) 2.6 2.4 - 3.9 g/dL [facility] SODIUM 137 136 - 145 mEq/L [facility] BILIRUBIN TOTAL 6.9(H) 0.3 - 1.2 mg/dL [facility] TOTAL PROTEIN 5.9(L) 6.3 - 8.2 g/dL [facility] BUN 10 7 - 17 mg/dL [facility] AST 153(H) 8 - 33 U/L [facility] CO2 29 22 - 32 mmol/l [facility] ALBUMIN/GLOBULIN RATIO 1.3 1.0 - 2.3 [facility] ALBUMIN 3.3(L) 3.5 - 5.0 g/dL [facility] POTASSIUM 3.1(L) 3.5 - 5.0 mEq/L [facility] ANION GAP 14 9 - 20 mEq/L [facility] Blood specimen (specimen) 07/05/2008 5:58 AM CDT 07/05/2008 6:09 AM CDT Rito Donahue MD CHEMISTRY ORDERABLES Deyanira blackburn Result INTERFACE SYSTEM Refer to clinic/hospital department [facility] CLIA# [id number] [facility] [place] [address] documented in this encounter Visit Diagnoses Not on filedocumented in this encounter
--- OUTSIDE RECORDS SUMMARY | 2025-04-24 21:01 | XMS_ITS | Patient Health Record ---
Author Organization [facility] Address [address] [place] [address] Care Team Providers Care Product Development Manager Name Role Phone Rito Juárez Primary Care Provider [phone] Allergies No Known Allergies Reason For Referral No Information Medications Medication SIG (Take, Route, Frequency, Duration) Notes Start Date End Date Status Meloxicam 15 mg Tablet TAKE ONE TABLET B Y MOUTH ONCE DAILY; Duration: 90 Active B Complex - Tablet as directed Orally Active amLODIPine Besylate 5 mg Tablet TAKE ONE TABLET BY MOUTH DAILY; Duration: 90 Active Lisinopril 40 MG Tablet TAKE ONE TABLET BY MOUTH ONCE DAILY; Duration: 90 days Active Vitamin C 1000 MG Tablet 1 tablet Orally Once a day Active Lantus 100 UNIT/ML Solution 20 units Subcutaneous daily; Duration: 90 days Active Escitalopram Oxalate 5 mg Tablet TAKE ONE TABLET BY MOUTH DAILY; Duration: 30 Not-Taking GNP UltiCare Pen Karthaus 32G X 4 MM Miscellaneous USE DIRECTED ONCE DAILY; Duration: 100 Active Lantus SoloStar 100 UNIT/ML Solution Pen-injector INJECT 30 UNITS SUBCUTANEOUSLY ONCE DAILY; Duration: 100 Not-Taking Cholecalciferol 125 MCG (5000 UT) Capsule 1 capsule Orally Once a day Active Detrol LA 4 MG Capsule Extended Release 24 Hour 1 capsule Orally Once a day; Duration: 90 days Not-Takin g DULoxetine HCl 30 MG Capsule Delayed Release Particles 1 capsule Orally Once a day; Duration: 30 day(s) 11/07/2023 Not-Taking TRUEplus Pen Karth[place] 31G X 6 MM Miscellaneous as directed in vitro inject once daily; Duration: 30 days 11/07/2022 Active Social History Tobacco Use: Social History Observation Description Date Details (start date - stop date) Never Smoker NA - NA Social History Depression Screening Social Info Question Answer Notes depression screening findings Findings Negative (0 -4) 01/11/25 PHQ-9 Little interest or p lin in doing things Not at all Feeling down, depressed, or hopeless Not at all Trouble falling or staying asleep, or sleeping t oo much Not at all Feeling tired or having little energy Not at all Poor appetite or overeating Not at all Feeling bad about yourself, or that you are a failure, or have let yourself or your family down Not at all Trouble concentrating on thi ngs, such as reading the newspaper or watching television Not at all Moving or speaking so slowly that other people could have noticed. Or the opposite ? being so fidgety or restless that you have been moving around a lot more than usual Not at all Thoughts that you would be b [place] off , or of hurting yourself in some way Not at all Total Score 0 Drugs/Alcohol: Social Info Question Answer Notes Alcohol Screen (Audit-C) Did you have a drink containing alcohol in the past year? No Points 0 Interpretation Negative Drugs Have you used drugs other than those for medical reasons in the past 12 months? No Comprehensive Health Assessm ent Social Info Question Answer Notes *Social Determinants of Health Has lack of transportation kept you from medical appointments, meetings, work or from getting things needed for daily living? No Recently, have you worried t hat your food would run out before you got money to buy more? No Do you feel physically and emotionally safe wher e you currently live? No Are you worried about losing your housing? No Have you recently been benjamin rned that your utilities would be turned off (electricity, gas, or water)? No Tobacco Use: Social Info Question Answer Notes Tobacco Control (Standard) Tobacco use: Nonsmoker Section Notes: 11-07-22 smoke screen/alcohol screen/depression screen 11-07-22 smoke screen/alcohol screen/depression screen 11-07-22 smoke screen/alcohol screen/depression screen 11-07-22 smoke screen/alcohol screen/depression screen 11-07-22 smoke screen/alcohol screen/depression screen 11-07-22 smoke screen/alcohol screen/depression screen 11-07-22 smoke screen/alcohol screen/depression screen 11-07-22 smoke screen/alcohol screen/depression screen 11-07-22 smoke screen/alcohol screen/depression screen Dep Tob 09/14/24 11-07-22 smoke screen/alcohol screen/depression screen Dep Tob 09/14/24 CIME Dep/tob - 01/11/25 11-07-22 smoke screen/alcohol screen/depression screen Problems Problem Type SNOMED Code ICD Code Onset Dates Problem Status W/U Status Risk Notes Problem 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 Problem Long-term current use of insulin (517040769) longterm (current) use of insulin (Z79.4) Active confirmed Problem Essential hypertension (66249719) Essential hypertension (I10) Active confirmed Problem Incontinence (11160260) Incontinence in female (R32) Active confirmed Problem Pneumonia (565558731) Community acquired pneumonia of right lower lobe of lung (J18.9) Active confirmed Problem Cognitive impairment (395289842) Cognitive impairment (R41.89) Active confirmed Vital Signs Heart Rate 71 /min 01/11/2025 Temperature 99.1 degrees Fahrenheit 01/11/2025 Blood pressure diastolic 70 mm Hg 01/11/2025 Oximetry 99 % 01/11/2025 Height-cm 157.48 cm 01/11/2025 Weight-kg 64.41 kg 01/11/2025 Height 62 in 01/11/2025 Blood pressure systolic 135 mm Hg 01/11/2025 Weight 142 lbs 01/11/2025 BMI 25.97 kg/m2 01/11/2025 Encounters Encounter Location Date Provider Diagnosis [facility] [address] [address] 01/11/2025 Rito Juárez Diabetes mellitus du e to underlying condition without complications E08.9 ; longterm (current) use of insulin Z79.4 ; Essential hypertension I10 ; Incontinence in female R32 ; Cognitive impairment R41.89 and Depression screen Z13.31 [facility] [address] [phone] 09/14/2024 Rito Juárez Cognitive impairment R41.89 ; Essential hypertension I10 ; DM w/o complication type I E10.9 ; Depression screen Z13.31 and Diabetes mellitus due to underlying condition without complications E08.9 [facility] [address] [address] 05/18/2024 Rito Juárez Cognitive impairment R41.89 ; Essential hypertension I10 ; Incontinence in female R32 and Controlled diabetes mellitus type 1 without complications E10.9 Assessments Encounter Date Diagnosis (ICD Code) Assessment Notes Treatment Notes Treatment Clinical Notes Section Notes 05/18/2024 Essential hypertension (ICD-10 - I10) 05/18/2024 Cognitive impairment (ICD-10 - R41.89) 09/14/2024 Essential hypertension (ICD-10 - I10) 09/14/2024 Cognitive impairment (ICD-10 - R41.89) 01/11/2025 Diabetes mellitus due to underlying condition without complications (ICD-10 - E08.9) Doing well. 01/11/2025 longterm (current) use of insulin (ICD-10 - Z79.4) 01/11/2025 Essential hypertension (ICD-10 - I10) 09/14/2024 DM w/o complication type I (ICD-10 - E10.9) 05/18/2024 Incontinence in female (ICD-10 - R32) 05/18/2024 Controlled diabetes mellitus type 1 without complications (ICD-10 - E10.9) 09/14/2024 Depression screen (ICD-10 - Z13.31) 01/11/2025 Incontinence in female (ICD-10 - R32) 09/14/2024 Diabetes mellitus due to underlying condition without complications (ICD-10 - E08.9) 01/11/2025 Cognitive impairment (ICD-10 - R41.89) 01/11/2025 Depression screen (ICD-10 - Z13.31) 09/14/2024 Other All patient's questions are encouraged and addressed to their apparent satisfaction. They are agreeable with the proposed plan of care and deny further needs or concerns. I am happy to see patient prior to next office visit as needed for acute concerns. Plan Of Treatment Next Appt Details Provider Name:Rito Juárez, 07/20/2025 02:00:00 PM, [address], [phone], Insurance Providers Payer Name Payer Address Payer Phone Subscriber Number Group Number Insured Name Patient Relationship to Insured Coverage Start Date Coverage End Date [place] Medicare [address] [place]CHELL [phone] [id number] Roya Esposito Self - patient is the insured [place] [employer] [address] [address] [place] [phone] [id number] Roya Esposito Self - patient is the insured Medications Administered Medication Instructions Date of Administration Dosage Notes dexAMETHasone 09/05/2022 10 mg dexAMETHasone 09/13/2022 10 mg Rocephin 09/05/2022 1000 mg Rocephin 09/13/2022 1 g Medical (General) History Medical History History ICD Code type I diabetes Surgical History Surgery Date(Month/Year) gallbladder removal 1992 L eye surgery x 2 /07/2024
[2025-04-24 21:04] VITALS: BP 151/70; PULSE 67; RESP 16; TEMP 36.6; O2SAT 100; BMI 25.9
[2025-04-24 21:31] VITALS: BP 152/77; PULSE 65; O2SAT 100
--- NOTE | 2025-04-24 21:34 | CTR_ITS ---
PROCEDURE INFORMATION: Exam: CT Head Without Contrast Exam date and time: 04/24/2025 9:55 PM Age: 84 years old Clinical indication: Injury or trauma; Blunt trauma (contusions or hematomas); Patient stood up from using restroom and hit left frontal against bathroom door. ; Additional info: Head inj TECHNIQUE: Imaging protocol: Computed tomography of the head without contrast. Radiation optimization: All CT scans at this facility use at least one of these dose optimization techniques: automated exposure control; mA and/or kV adjustment per patient size (includes targeted exams where dose is matched to clinical indication); or iterative reconstruction. COMPARISON: CT head wo con* [id number] 01/27/2024 2:23 AM RADIATION DOSE METRICS: Total DLP (mGy-cm): 943.08 FINDINGS: Brain: Parenchymal volume loss with scattered white matter hyperintensities consistent with chronic microvascular ischemic changes. No acute intracranial hemorrhage, mass effect or midline shift. Cerebral ventricles: No ventriculomegaly. Paranasal sinuses: Visualized sinuses are unremarkable. No fluid levels. Mastoid air cells: Visualized mastoid air cells are well aerated. Bones: Unremarkable. No acute fracture. Soft tissues: Unremarkable. CT/CT head wo con* [id number] IMPRESSION: No acute intracranial abnormality.
--- NOTE | 2025-04-24 21:53 | ED_ITS ---
HPI - Head Injury General: Chief complaint: Head Injury Stated complaint: Hit L side head on the restroom door Time Seen by Provider: 04/24/25 21:25 History of Present Illness: 84-year-old female who fell striking her head on the bathroom stall door earlier in the evening. She is experiencing a frontal headache. She had swelling. She iced it, with improvement in the swelling and pain since her injury. Pain is a 5 out of 10. She was not knocked unconscious. No visual changes. Daughter states that she had some mild mental status changes afterwards that have seemed to cleared mostly. She fell down the stairs a year ago, and has had a headache daily since that time, the 2 injuries combined worried the daughter, as she has not had any imaging after the first injury Related Data Home Medications ?Medication ?Instructions ?Recorded ?Confirmed acetaminophen 650 mg 650 mg PO Q12H 03/03/2001/28 tablet,extended release (Arthritis Pain Relief (acetaminophen) ER) ascorbate calcium (vitamin C) 500 500 mg PO DAILY 07/3102/10/25 mg tablet cholecalciferol (vitamin D3) 1,250 PO DAILY 08/09/20 0 02/10/25 mcg (50,000 unit) tablet (Dialyvite Vitamin D3 Max) Previous Rx's ?Medication ?Instructions ?Recorded pen needle, diabetic 31 gauge x See Rx Instructions .R oute 05/03/2112/13 (TRUEplus Pen Needle) .COMPLEX #100 ea insulin glargine 100 unit/mL (3 40 unit (0.4 mL) SUBCU T DAILY #15 04/09/22 mL) subcutaneous pen (Lantus mL Solostar U-100 Insulin) lisinopril 20 mg tablet 20 mg PO DAILY #90 tabs 10/0 02/18 meloxicam 15 mg tablet 15 mg PO DAILY #90 tabs 10/0 02/18 miscellaneous medical supply 1 ea miscellaneous QDAY # 1 ea 08/27/22 amlodipine 10 mg tablet 10 mg PO DAILY #30 tabs 12/30 06/23 Allergies Allergy/AdvReac Type Severity Reaction Status Date / Time No Known Allergies Allergy Verified 02/10/25 18:22 [facility] ED PFSH: Medical History Diabetes Essential (primary) hypertension Family History Father Diabetes Other Heart disease Social History Smoking and tobacco/nicotine status: never used tobacco/nicotine Alcohol intake: never Marital status: service: No Current gender identity: Female Physical Exam Const: COMMON NORMALS: no acute distress and alert GENERAL APPEARANCE: cooperative and frail appearing (Mildly); not ill appearing HENMT: COMMON NORMALS: normocephalic, atraumatic and Normal external nose present HEAD & SCALP: normocephalic and atraumatic FACE & SINUS: normal facial exam and face symmetric NOSE: Normal external nose present Eye: COMMON NORMALS: Equal, round and reactive pupils present and EOMs intact bilaterally PUPIL: Yes Equal, round and reactive pupils present Neck/C-Spine: GENERAL: Yes trachea midline Chest: CHEST: Yes Symmetrical chest wall rise Resp: COMMON NORMALS: normal respiratory effort, No retractions, No use of accessory muscles and clear to auscultation bilaterally AUSCULTATION: clear to auscultation bilaterally Cardio: COMMON NORMALS: regular rate and regular rhythm RATE: regular rate RHYTHM: regular rhythm GI: COMMON NORMALS: Normal to inspection, nondistended, normoactive bowel sounds present Extremity: COMMON NORMALS: no pedal edema Neuro: [place] COMA SCALE: document GCS findings [place] coma scale eye opening: Spontaneous [place] coma scale verbal response: Orientated [place] coma scale motor response: Obey commands [place] coma scale total score: 15 SENSORIUM/ORIENTATION: Yes alert CRANIAL NERVES: Yes CN normal except as noted COORDINATION/BALANCE: [id number] test normal and vimj-cl-iizl test normal SPEECH: speech normal SENSORY EXAM: Yes extremities (intact) MOTOR EXAM: Pronator motor function not present COORDINATION: uribct-dm-[id number] test normal and jozx-ah-rmct test normal Psych: COMMON NORMALS: speech normal SPEECH: Yes normal speech Skin: COMMON NORMALS: no rashes or lesions noted GENERAL SKIN EXAM: no rashes or lesions noted Course Vital Signs: Vital signs: Vital Signs Temperature 97.9 F 04/24/25 21:04 Pulse Rate 59 L 04/24/25 23:03 Respiratory Rate 18 04/24/25 22:08 Blood Pressure 171/57 04/24/25 23:03 Pulse Oximetry 99 04/24/25 23:03 Oxygen Delivery Me thod Room Air 04/24/25 21:31 MDM - Head Injury Medcial Decision Making Head CT is negative. Mental status is back to baseline. No evidence of any other injury. Headache is better following medication. She'll be discharged. Outpatient follow up. Lab Data Radiology Impressions Head CT 04/24/25 21:34 IMPRESSION: No acute intracranial abnormality. All radiology interpretation(s) finalized by discharge Discharge Plan Discharge Patient Disposition: Home Clinical Impression: Contusion of forehead Condition: Stable Prescriptions: No Action acetaminophen [Arthritis Pain Relief (acetam)] 650 mg tablet extended release 650 mg PO Q12H ascorbate calcium (vitamin C) 500 mg tablet 500 mg PO DAILY Dialyvite Vitamin D3 Max 1,250 mcg (50,000 unit) tablet PO DAILY lisinopril 20 mg tablet 20 mg PO DAILY Qty: 90 3RF meloxicam 15 mg tablet 15 mg PO DAILY Qty: 90 3RF pen needle, diabetic [TRUEplus Pen Needle] 31 gauge x 3/16 needle See Rx Instructions .ROUTE .COMPLEX Qty: 100 12RF Dose Instruction: USE DIRECTED ONCE DAILY Rx Instructions: USE DIRECTED ONCE DAILY Lantus Solostar U-100 Insulin 100 unit/mL (3 mL) insulin pen 40 unit SUBCUT DAILY Qty: 15 7RF miscellaneous medical supply Misc 1 ea miscellaneous QDAY Qty: 1 0RF Rx Instructions: polymem Ag dressing amlodipine 10 mg tablet 10 mg PO DAILY Qty: 30 0RF Discharge Orders: Discharge ED (Routine); Ordered 04/24/25 Ordered By: Isaac [place]a Referrals: Duran Juárez MD [Primary Care Provider, Internal Medicine] - 1-3 days Patient Instructions: Facial Contusion (ED), Opioid Safety, Pain Management, Patient Portal & Angela Instructions Activity Restrictions/Additional Instructions: Return for any problems. Print Language: Greek Coding Level of Care Code ED Supervisor [facility]
[2025-04-24 22:08] VITALS: RESP 18; O2SAT 100
[2025-04-24] MEDS: oxyCODONE-APAP 5-325 mg Tablet 1 TAB PO (22:08)
[2025-04-24 23:03] VITALS: BP 171/57; PULSE 59; O2SAT 99
== END 2025-04-24 23:14 | disposition home or self-care (01) ==
PROVIDERS: Emergency Provider Emergency Medicine; PCP Internal Medicine
DX: S00.83XA Contusion of other part of head, initial encounter (principal); E11.9 Type 2 diabetes mellitus without complications; I10 Essential (primary) hypertension; W01.198A Fall on same level from slipping, tripping and stumbling with subsequent striking against other object, initial encounter
CPT/HCPCS: 70450; 99284; J9999